=== PATIENT | male | born 1955 | race Caucasian/White ===

== ENCOUNTER 2018-06-16 05:32 | Inpatient (IN) | payer BC ==
[2018-06-16] MEDS: LACTATED RINGER'S 1,000 ML IV* (06:00)
[2018-06-16 06:05] LABS: INR 1.73; PROTIME 20.6 Sec (11.9-14.9); PT RATIO 1.6
[2018-06-16 06:06] LABS: PARTIAL THROMBOPLASTIN TIME 30.9 Sec (25.0-35.0)
[2018-06-16] MEDS ORDERED: PROPOFOL 200 MG INJ (07:00)
[2018-06-16] MEDS ORDERED: ROCURONIUM 50 MG INJ (07:00)
[2018-06-16] MEDS: PHYTONADIONE 10 MG/ML INJ IM (07:00)
[2018-06-16 08:15] LABS: TYPE AND SCREEN 1 1
[2018-06-16 11:28] LABS: INR 1.46; PT RATIO 1.4
[2018-06-16] MEDS: ACETAMINOPHEN 1000MG/100ML IV 100 ML IVPB (11:57)
[2018-06-16] MEDS: ONDANSETRON 4 MG INJ IV ×4 (11:57→18:30)
[2018-06-16] MEDS: DEXAMETHASONE 4 MG/ML 1 ML INJ IV (11:57)
[2018-06-16] MEDS: oxyCODONE (CR) 10 MG TAB [oxyCONTIN] PO (11:57)
[2018-06-16] MEDS: LANSOPRAZOLE 30 MG CAP PO (11:57)
[2018-06-16] MEDS ORDERED: NACL 0.9% 3 ML SYG IV (12:30)
[2018-06-16] MEDS ORDERED: MAGNESIUM HYDROXIDE 30ML CUP PO (12:30)
[2018-06-16] MEDS ORDERED: BETHANECHOL 25 MG TAB PO (12:30)
[2018-06-16] MEDS ORDERED: NA PHOSPHATE/BIPHOS 133 ML ENEMA PR (12:30)
[2018-06-16] MEDS ORDERED: DIPHENHYDRAMINE 50 MG INJ IV ×2 (12:30→13:30)
[2018-06-16] MEDS ORDERED: NALOXONE (0.4 MG/ML) INJ IV (12:30)
[2018-06-16] MEDS ORDERED: oxyCODONE 5 MG TAB PO (12:30)
[2018-06-16] MEDS: TRANEXAMIC ACID 1,000 MG in NS 100 ML PRE-OP X1 IVPB (12:40)
[2018-06-16] MEDS ORDERED: METOCLOPRAMIDE 10 MG INJ (12:52)
[2018-06-16] MEDS ORDERED: MIDAZOLAM 1 MG/ML 2 ML INJ (12:52)
[2018-06-16] MEDS ORDERED: HYDROmorphONE 2 MG/ML SYG (13:16)
[2018-06-16] MEDS ORDERED: CEFAZOLIN 1 GM INJ (13:19)
[2018-06-16] MEDS ORDERED: METOPROLOL 5 MG INJ (13:24)
[2018-06-16] MEDS ORDERED: EPHEDrine SULFATE 50 MG/5 ML SYG IV (13:30)
[2018-06-16] MEDS ORDERED: LABETALOL HCL 20MG INJ IV (13:30)
[2018-06-16] MEDS ORDERED: HYDROmorphONE 1 MG/5 ML IV SYRINGE IV ×3 (13:30)
[2018-06-16] MEDS ORDERED: MEPERIDINE 25 MG INJ IV (13:30)
[2018-06-16] MEDS: POLYMYXIN B 500000 UNIT INJ (13:33)
[2018-06-16] MEDS: BACITRACIN 50000 UNITS INJ IRR (13:33)
[2018-06-16] MEDS ORDERED: GLYCOPYRROLATE 0.4 MG INJ ×2 (14:30→14:52)
[2018-06-16] MEDS ORDERED: PROPOFOL 20 ML (14:30)
[2018-06-16] MEDS ORDERED: ROPIVACAINE 0.5 % 30 ML VIAL (14:31)
[2018-06-16] MEDS: TRANEXAMIC ACID 1,000 MG in NS 100 ML INTRA-OP X1 IVPB (14:42)
[2018-06-16] MEDS ORDERED: NEOSTIGMINE 3 MG/3 ML SYRINGE (14:52)
[2018-06-16] MEDS ORDERED: ONDANSETRON 4 MG INJ (14:53)
[2018-06-16] MEDS: HIP PAIN COCKTAIL (CEFUROXIME) INJ ×2 (15:00→15:03)
[2018-06-16] MEDS: SOD CHLORIDE 0.9% 1,000 ML IV ×2 (15:58→20:34)
[2018-06-16] MEDS: DOCUSATE SODIUM 100 MG CAP PO (16:00)
[2018-06-16] MEDS: CEFAZOLIN 1 GM/50 ML (PMX) 50 ML IVPB (16:00)
[2018-06-16] MEDS: WARFARIN 2.5 MG TAB PO (17:00)
[2018-06-16] MEDS: hydrALAzine 20 MG INJ IV (17:04)
[2018-06-16 18:15] LABS: PLATELET COUNT 184 10^3/UL (140-415)
[2018-06-16] MEDS: oxyCODONE 5 MG TAB PO (20:30)
[2018-06-16] MEDS: WARFARIN 2 MG TAB PO (20:31)
[2018-06-16] MEDS: DIGOXIN 0.125 MG TAB PO (22:27)
[2018-06-16] MEDS: ENOXAPARIN 80 MG/0.8 ML SYG SC (22:54)
[2018-06-17] MEDS: CEFAZOLIN 1 GM/50 ML (PMX) 50 ML IVPB ×2 (00:23→08:20)
[2018-06-17] MEDS: ONDANSETRON 4 MG INJ IV ×2 (02:10→08:21)
[2018-06-17] MEDS: oxyCODONE 5 MG TAB PO ×6 (02:19→21:35)
[2018-06-17] MEDS: SOD CHLORIDE 0.9% 1,000 ML IV ×2 (03:08→17:13)
[2018-06-17 05:41] LABS: ADD MAN DIFF? NO
[2018-06-17 05:42] LABS: WHITE BLOOD COUNT 10.3 10^3/ul (4.8-10.8)
[2018-06-17 05:42] LABS: ABNORMAL IP MESSAGE 1; BASOPHIL # 0.1 10^3/ul (0.0-0.1); BASOPHILS % 0.5 % (0.0-2.0); EOSINOPHILS % 0.1 % (0.0-7.0); HEMATOCRIT 31.9 % (42.0-52.0); HEMOGLOBIN 10.9 g/dl (14.0-18.0); LYMPHOCYTES # 0.4 10^3/ul (0.8-2.9); LYMPHOCYTES % 3.6 % (15.0-51.0); MEAN CORPUSCULAR HEMOGLOBIN 35.7 pg (29.0-33.0); MEAN CORPUSCULAR HGB CONC 34.2 g/dl (32.0-37.0); MEAN CORPUSCULAR VOLUME 104.6 fl (82.0-101.0); MEAN PLATELET VOLUME 10.2 fl (7.4-10.4); MONOCYTE # 0.8 10^3/ul (0.3-0.9); MONOCYTES % 7.8 % (0.0-11.0); NEUTROPHILS % 87.2 % (39.0-77.0); PLATELET COUNT 155 10^3/UL (140-415); POSITIVE DIFF @See below; RED BLOOD COUNT 3.05 10^6/ul (4.70-6.10); RED CELL DISTRIBUTION WIDTH 13.1 % (11.5-14.5)
[2018-06-17 06:01] LABS: ANION GAP 11 (8-16); BLOOD UREA NITROGEN 23 mg/dl (7-20); CARBON DIOXIDE 27 mmol/L (21-31); CHLORIDE 101 mmol/L (97-110); GLUCOSE 130 mg/dl (70-220); POTASSIUM 3.6 mmol/L (3.5-5.1); SODIUM 135 mmol/L (135-144)
[2018-06-17] MEDS: PANTOPRAZOLE (EC) 40 MG TAB PO (06:31)
[2018-06-17 07:05] LABS: INR 1.39; PROTIME 17.3 Sec (11.9-14.9); PT RATIO 1.4
[2018-06-17 07:06] LABS: PARTIAL THROMBOPLASTIN TIME 39.1 Sec (25.0-35.0)
[2018-06-17] MEDS: FERROUS FUMARATE (SR) TAB PO ×2 (08:13→21:27)
[2018-06-17] MEDS: AMLODIPINE 10 MG TAB PO (08:14)
[2018-06-17] MEDS: CELECOXIB 200 MG CAP PO ×2 (08:14→21:27)
[2018-06-17] MEDS: DOCUSATE SODIUM 100 MG CAP PO ×2 (08:14→21:29)
[2018-06-17] MEDS: ENOXAPARIN 80 MG/0.8 ML SYG SC ×2 (08:16→21:40)
[2018-06-17] MEDS: DIGOXIN 0.125 MG TAB PO (12:49)
[2018-06-17] MEDS: SENNA/DOCUSATE NA (8.6MG/50MG) TAB PO (15:18)
[2018-06-17] MEDS: WARFARIN 2.5 MG TAB PO (17:17)
[2018-06-17] MEDS ORDERED: ENOXAPARIN 80 MG/0.8 ML SYG SC (21:41)
[2018-06-17] MEDS: BISACODYL 10 MG SUPP PR (22:08)
[2018-06-18 05:00] LABS: ADD MAN DIFF? NO
[2018-06-18 05:04] LABS: WHITE BLOOD COUNT 6.3 10^3/ul (4.8-10.8)
[2018-06-18 05:04] LABS: BASOPHIL # 0.1 10^3/ul (0.0-0.1); EOSINOPHILS # 0.3 10^3/ul (0.0-0.5); EOSINOPHILS % 5.3 % (0.0-7.0); HEMATOCRIT 28.7 % (42.0-52.0); HEMOGLOBIN 9.5 g/dl (14.0-18.0); LYMPHOCYTES # 0.6 10^3/ul (0.8-2.9); LYMPHOCYTES % 10.2 % (15.0-51.0); MEAN CORPUSCULAR HEMOGLOBIN 35.3 pg (29.0-33.0); MEAN CORPUSCULAR HGB CONC 33.1 g/dl (32.0-37.0); MEAN CORPUSCULAR VOLUME 106.7 fl (82.0-101.0); MEAN PLATELET VOLUME 10.5 fl (7.4-10.4); MONOCYTE # 0.5 10^3/ul (0.3-0.9); MONOCYTES % 8.1 % (0.0-11.0); NEUTROPHIL # 4.7 10^3/ul (1.6-7.5); NEUTROPHILS % 74.9 % (39.0-77.0); PLATELET COUNT 118 10^3/UL (140-415); RED BLOOD COUNT 2.69 10^6/ul (4.70-6.10); RED CELL DISTRIBUTION WIDTH 13.1 % (11.5-14.5)
[2018-06-18 05:23] LABS: INR 1.17; PROTIME 15.1 Sec (11.9-14.9); PT RATIO 1.2
[2018-06-18 05:24] LABS: PARTIAL THROMBOPLASTIN TIME 42.7 Sec (25.0-35.0)
[2018-06-18] MEDS: SOD CHLORIDE 0.9% 1,000 ML IV (05:24)
[2018-06-18] MEDS: PANTOPRAZOLE (EC) 40 MG TAB PO (05:25)
[2018-06-18 05:34] LABS: ANION GAP 10 (8-16); BLOOD UREA NITROGEN 15 mg/dl (7-20); CALCIUM 8.1 mg/dl (8.4-10.2); CARBON DIOXIDE 29 mmol/L (21-31); CHLORIDE 106 mmol/L (97-110); CREATININE 1.08 mg/dl (0.61-1.24); GLUCOSE 107 mg/dl (70-220); POTASSIUM 4.6 mmol/L (3.5-5.1); SODIUM 140 mmol/L (135-144)
[2018-06-18] MEDS: oxyCODONE 5 MG TAB PO ×3 (05:56→14:57)
[2018-06-18] MEDS: FERROUS FUMARATE (SR) TAB PO (10:32)
[2018-06-18] MEDS: AMLODIPINE 10 MG TAB PO (10:32)
[2018-06-18] MEDS: CELECOXIB 200 MG CAP PO (10:32)
[2018-06-18] MEDS: DOCUSATE SODIUM 100 MG CAP PO (10:33)
[2018-06-18] MEDS: ENOXAPARIN 80 MG/0.8 ML SYG SC (10:36)
[2018-06-18] MEDS: DIGOXIN 0.125 MG TAB PO (14:56)
== END 2018-06-18 16:35 | disposition home health service (06) | DRG 470 ==
LOC: REC 05:32 → MS1 19:15
PROC: 0SR904A Replacement of Right Hip Joint with Ceramic on Polyethylene Synthetic Substitute, Uncemented, Open Approach (ICD-10-PCS; principal; 2018-06-16 07:30)
PROC: 8E0YXBZ Computer Assisted Procedure of Lower Extremity (ICD-10-PCS; 2018-06-16 07:30)
DX: M16.11 Unilateral primary osteoarthritis, right hip (principal); I10 Essential (primary) hypertension; I48.91 Unspecified atrial fibrillation; Z95.2 Presence of prosthetic heart valve; Z79.84 Long term (current) use of oral hypoglycemic drugs
CPT/HCPCS: 36430; 72170; 73500; 73530; 80048; 82040; 85025; 85049; 85610; 85730; 86850; 86900; 86901; 87081; 88304; 88311; 97110; 97116; 97162; 97165; 97530